=== PATIENT | male | born 1970 | race Caucasian/White ===

== ENCOUNTER 2016-06-08 11:51 | Emergency (ER) | payer BC ==
--- NOTE | ~2016-06-08 | CR206 ---
[facility] A Service of [facility] RADIOLOGY TEXT RESULTS PATIENT: SHARI MALONE LOCATION: SED : 72 UNIT #: [id number] AGE: [address]: Mary Reardon APRN SEX: M ORDER DR: [id number] [place] [id number] E MR#: [id number] Acc #: [id number] NAME: SHARI MALONE : 1970 SEX: M STUDY DATE/TIME: 06/08/2016 UNIT: SED ROOM: STUDY DESCRIPTION: CR Pelvis 1 or 2 Views Attending Physician: Mary Reardon A.P.R.N. Ordering Physician: Mary Reardon A.P.R.N. MEDICAL IMAGING REPORT This report is preliminary unless electronic signature is present. EXAM Pelvis 1-view 06/08/2016 1159 hours HISTORY Patient fell off a 7-foot ladder today suffering laceration to buttocks on the left from metal trim. COMPARISON None FINDINGS AP pelvis and lateral view were performed. Bone density is normal. There is no fracture or dislocation. No radiopaque foreign body is seen. Note that all of the soft tissues laterally over the hips and buttocks are not included in the field of view. I cannot clearly identify the site of laceration, and clinical correlation is needed to determine whether the area of laceration is included in the field of view. IMPRESSION There is no fracture, dislocation or radiopaque foreign body. Note that all of the soft tissues over the hips and buttocks are not included in the field of view on the AP view. Correlation is needed with site of laceration, which I cannot determine on plain film. Please correlate to be sure that the area of laceration is included in the field of view. Dictated by... Belinda Canseco M.D. THIS IS AN ELECTRONICALLY VERIFIED REPORT Belinda Canseco M.D. at 06/08/2016 2:30 PM [facility] A Service of [facility] RADIOLOGY TEXT RESULTS PATIENT: SHARI MALONE LOCATION: SED : 72 UNIT #: [id number] AGE: [address]: Mary Reardon APRN SEX: M ORDER DR: Danna TD: 06/08/2016 13:43 JOB #: [id number] MEDICAL IMAGING REPORT Page 1 of 1
[~2016-06-08 11:51] MED LIST: ACULAR10 ML OT; B/P MED; PERCOCET10; SKELAXIN PO; VICODIN 5/500 T1 TAB PO
== END 2016-06-08 13:40 | disposition home or self-care (01) ==
LOC: SED 11:51
DX: S31.821A Laceration without foreign body of left buttock, initial encounter (principal); W11.XXXA Fall on and from ladder, initial encounter
CPT/HCPCS: 12031; 72170; 90715; 99283